=== PATIENT | male | born 1975 | race Caucasian/White ===

== ENCOUNTER 2018-12-06 15:27 | Emergency (ER) | payer OTHER ==
[2018-12-06 15:45] VITALS: BP 148/86
--- NOTE | 2018-12-06 16:00 | ED Physician Documentation ---
PD HPI UPPER EXT INJURY - Stated complaint Stated Complaint: L HAND LAC - Chief complaint Chief Complaint: Laceration - History obtained from History obtained from: Patient - History of Present Illness Location: Left, Forearm (volar aspect) Type of injury: Laceration (forearm lac from edge of metal. No FB.) Where injury occurred: Work Timing - onset: How many hours ago, Today Timing - details: Abrupt onset Associated symptoms: No: Weakness, Numbness, Swelling Contributing factors: Work related. No: Anticoagulated Similar symptoms before: Has not had sx before Review of Systems Neurologic: denies: Focal weakness, Numbness, Near syncope PD PAST MEDICAL HISTORY - Past Medical History Past Medical History: No - Present Medications Home Medications: Ambulatory Orders Medication Instructions Recorded Confirmed No Known Home Medications 12/06/18 12/06/18 - Allergies Allergies/Adverse Reactions: Allergies Allergy/AdvReac Type Severity Reaction Status Date / Time No Known Drug Allergies Allergy Verified 12/06/18 15:45 PD ED PE NORMAL - Vitals Vital signs reviewed: Yes - General General: Alert and oriented X 3, No acute distress, Well developed/nourished - Derm Derm: Normal color, Warm and dry - Extremities Extremities: Other (left forearm with volar laceration to fatty tissue without FB, is 3 cm length, without FB. No weakness nor pain with flexion.) - Neuro Neuro: No motor deficit, No sensory deficit Results - Vitals Vitals: Vital Signs - 24 hr 12/06/18 15:41 Temperature 37.1 C Heart Rate 96 Respiratory 18 Rate Blood Pressure 148/86 H O2 Saturation 96 Oxygen O2 Source Room air Procedures - Laceration (location) left volar forearm Length in cm: 3.4 Wound type: Linear, Clean. No: Contaminated Neurovascular status: Sensory intact, Motor intact, Vascular intact Tendon involvement: Tendon intact Anesthesia: Lidocaine 1% with epi Wound Preparation: Irrigated copiously NS Skin layer closure: Nylon, Jennifer, Size #-0 - enter number (4), Sutures - enter # Other: Patient tolerated well, No complications, Neurovascular intact, Dressing applied, Tetanus UTD Complexity: Simple Departure - Departure Disposition: 01 Home, Self Care Clinical Impression: Forearm laceration Qualifiers: Encounter type: initial encounter Laterality: left Qualified Code(s): S51.812A - Laceration without foreign body of left forearm, initial encounter Condition: Stable Record reviewed to determine appropriate education?: Yes Instructions: ED Laceration All Print Language: Serbian Comments: It is okay to wash and shower. Clean off the wound twice a day with soap and water, or peroxide and water. Apply some antibiotic ointment to it to keep it moist. Also to watch for signs of infection such as purulence, redness or increasing pain. Return to your primary care or the ER at the specified time for suture removal. Suture removal 8 to 10 days. Tylenol ibuprofen if needed for pains. Discharge Date/Time: 12/06/18 16:31
[2018-12-06] MEDS ORDERED: IBUPROFEN 600 MG TABLET PO STA (16:19)
== END 2018-12-06 16:31 | disposition home or self-care (01) ==
LOC: ED 15:27
DX: S51.812A Laceration without foreign body of left forearm, initial encounter (principal); W26.8XXA Contact with other sharp object(s), not elsewhere classified, initial encounter; Y93.H3 Activity, building and construction; Y99.0 Civilian activity done for income or pay
CPT/HCPCS: 1040M; 12002; 99282; A9270